=== PATIENT | male | born 1970 | race African-American/Black ===

== ENCOUNTER 2022-11-10 17:01 | Emergency (ER) | payer OTHER ==
[~2022-11-10] VITALS: Ht 182.9 cm; Wt 99.0 kg
[2022-11-10 17:10] VITALS: O2SAT 100
[2022-11-10] MEDS ORDERED: IBUP-2029 MT (18:21)
[2022-11-10] MEDS ORDERED: ACETAMINOPHEN 325MG TABLET PO ONE (18:30)
[2022-11-10 20:02] VITALS: BP 131/84; PULSE 72; RESP 18; TEMP 98.1
== END 2022-11-10 20:30 | disposition home or self-care (01) ==
LOC: ER 17:01
DX: S06.0X0A Concussion without loss of consciousness, initial encounter (principal); E11.9 Type 2 diabetes mellitus without complications; I10 Essential (primary) hypertension; W22.8XXA Striking against or struck by other objects, initial encounter; Y93.89 Activity, other specified; Y92.89 Other specified places as the place of occurrence of the external cause; Y99.8 Other external cause status
CPT/HCPCS: 99284

== ENCOUNTER 2022-11-22 04:47 | Emergency (ER) | payer OTHER ==
[~2022-11-22] VITALS: Ht 182.9 cm; Wt 100.0 kg
[~2022-11-22 04:47] MED LIST: IBUP-2029 MT
[2022-11-22 04:58] VITALS: O2SAT 93
[2022-11-22] MEDS ORDERED: KETOROLAC 60MG/2ML VIAL IM ONE (06:00)
[2022-11-22] MEDS ORDERED: METOCLOPRAMIDE HCL 10MG TABLET PO ONE (06:00)
[2022-11-22 06:17] VITALS: BP 128/82
[2022-11-22] MEDS ORDERED: METO-293 PO (07:13)
[2022-11-22] MEDS ORDERED: TOPUD PO (07:13)
[2022-11-22 07:21] VITALS: PULSE 100; RESP 24; TEMP 98.8
== END 2022-11-22 07:22 | disposition home or self-care (01) ==
LOC: ER 04:47
DX: S06.0X0A Concussion without loss of consciousness, initial encounter (principal); R51.9 Headache, unspecified; E11.9 Type 2 diabetes mellitus without complications; I10 Essential (primary) hypertension; X58.XXXA Exposure to other specified factors, initial encounter; Y93.89 Activity, other specified; Y92.89 Other specified places as the place of occurrence of the external cause; Y99.8 Other external cause status
CPT/HCPCS: 70450; 96372; 99285; J8597; J1885; Z7610

== ENCOUNTER 2023-04-14 03:35 | Emergency (ER) | payer MEDICAID, OTHER ==
[~2023-04-14] VITALS: Ht 182.9 cm; Wt 100.0 kg
[~2023-04-14 03:35] MED LIST changes: +METO-293 PO; +TOPUD PO
[2023-04-14 03:47] VITALS: BP 126/82; PULSE 85; RESP 14; TEMP 98; O2SAT 98
== END 2023-04-14 06:08 | disposition home or self-care (01) ==
LOC: ER 03:58
DX: S00.91XA Abrasion of unspecified part of head, initial encounter (principal); E11.9 Type 2 diabetes mellitus without complications; I10 Essential (primary) hypertension; Z88.0 Allergy status to penicillin; X58.XXXA Exposure to other specified factors, initial encounter; Y93.89 Activity, other specified; Y92.89 Other specified places as the place of occurrence of the external cause; Y99.8 Other external cause status
CPT/HCPCS: 99281